=== PATIENT | male | born 1960 | race Caucasian/White ===

== ENCOUNTER 2016-08-30 10:46 | Outpatient (CLI) | payer MEDICAID | END 2016-08-30 10:47 | disposition home or self-care (01) | DX: Z13.9 Encounter for screening, unspecified (principal) ==

== ENCOUNTER 2016-11-14 21:52 | Emergency (ER) | payer MEDICAID ==
--- NOTE | 2016-11-14 22:13 | ED Physician Documentation ---
History of Present Illness - Stated complaint Stated Complaint: GALINDO, BODY ACHES, FEVER - Chief complaint Chief Complaint: Fever - History obtained from History obtained from: Patient - History of Present Illness Timing: Other (Healthy 56-year-old gentleman has been sick for 2 days with body aches, vomiting, diarrhea which is better, chills, and headache. recently sick with similar syndrome. No recent travel. No neck stiffness.) Review of Systems Constitutional: reports: Chills, Myalgias, Fatigue. denies: Fever Ears: denies: Ear pain Nose: denies: Rhinorrhea / runny nose, Congestion Throat: denies: Sore throat Respiratory: denies: Cough GI: reports: Nausea, Vomiting, Diarrhea. denies: Abdominal Pain Skin: denies: Rash, Lesions Musculoskeletal: reports: Neck pain, Back pain Endocrine: denies: Weight loss, Weight gain PD PAST MEDICAL HISTORY - Past Medical History Cardiovascular: None Respiratory: None Neuro: None Endocrine/Autoimmune: None GI: None : None HEENT: None Psych: None Musculoskeletal: Chronic back pain Derm: None - Past Surgical History Past Surgical History: Yes General: Other HEENT: Tonsil/Adenoidectomy - Present Medications Home Medications: Ambulatory Orders Medication Instructions Recorded Confirmed Ibuprofen [Motrin] 800 mg PO Q8H PRN #30 tablet 11/14/16 Ondansetron HCl [Zofran] 4 mg PO Q6H PRN #10 tablet 11/14/16 - Allergies Allergies/Adverse Reactions: Allergies Allergy/AdvReac Type Severity Reaction Status Date / Time acetaminophen [From Vicodin] AdvReac Severe Nausea Verified 11/14/16 21:58 hydrocodone bitartrate * AdvReac Severe Nausea Verified 11/14/16 21:58 [From Vicodin] - Social History Does the pt smoke?: No Smoking Status: Never smoker Does the pt drink ETOH?: No Does the pt have substance abuse?: No - Immunizations Immunizations are current?: Yes - POLST Patient has POLST: No PD ED PE NORMAL - Vitals Vital signs reviewed: Yes - General General: Alert and oriented X 3, No acute distress - HEENT HEENT: PERRL, EOMI, Ears normal, Pharynx benign - Neck Neck: Supple, no meningeal sign, No bony TTP - Cardiac Cardiac: RRR, No murmur - Respiratory Respiratory: No respiratory distress, Clear bilaterally - Abdomen Abdomen: Soft, Non tender - Back Back: No CVA TTP, No spinal TTP - Derm Derm: No rash - Neuro Neuro: Alert and oriented X 3, Normal speech - Psych Psych: Normal mood, Normal affect Results - Vitals Vitals: Vital Signs - 24 hr 11/14/16 11/14/16 21:55 23:40 Temperature 36.3 C L Heart Rate 117 H 80 Respiratory 18 17 Rate Blood Pressure 120/81 H 124/70 O2 Saturation 99 99 Oxygen O2 Source Room air - Labs Labs: Laboratory Tests 11/14/16 22:40 Sodium 133 L Potassium 4.0 Chloride 103 Carbon Dioxide 23 Anion Gap 7.0 BUN 18 Creatinine 1.2 Estimated GFR (MDRD) 63 L Glucose 115 H Calcium 8.3 L Total Bilirubin 0.6 AST 26 ALT 19 Alkaline Phosphatase 54 Total Protein 7.3 Albumin 4.2 Globulin 3.1 Albumin/Globulin Ratio 1.4 Lipase 17 L PD MEDICAL DECISION MAKING - ED course ED course: 56-year-old gentleman with an illness that sounds quite flulike with headache, myalgias, vomiting and diarrhea, chills. He has no fever here and an unremarkable examination. He was administered IV fluids, Toradol, Zofran with excellent relief of his symptoms. Departure - Departure Disposition: 01 Home, Self Care Clinical Impression: Viral syndrome Condition: Good Record reviewed to determine appropriate education?: Yes Instructions: ED Viral Syndrome Prescriptions: Ibuprofen [Motrin] 800 mg PO Q8H PRN #30 tablet PRN Reason: PAIN &/OR FEVER Ondansetron HCl [Zofran] 4 mg PO Q6H PRN #10 tablet PRN Reason: Nausea / Vomiting Comments: It seems that you have a flulike illness. You should be better in the next couple of days. Return if worse or if new symptoms develop or if your nausea does not respond to the medication. Your blood pressure was elevated today on check in to the emergency department. This does not mean that you have hypertension, it is a common phenomenon to check into the emergency department and have elevated blood pressure. I recommend that you see your primary care physician within the week to have it rechecked when you're feeling better. Discharge Date/Time: 11/14/16 23:40
[2016-11-14] MEDS ORDERED: KETOROLAC 30 MG/ML VIAL ONE (22:28)
[2016-11-14] MEDS ORDERED: ONDANSETRON 4 MG/2 ML VIAL ONE (22:28)
[2016-11-14] MEDS: KETOROLAC 60 MG/2 ML VIAL IVP STA (22:32)
[2016-11-14] MEDS: SODIUM CHLORIDE 0.9% 1,000 ML IV ONE (22:32)
[2016-11-14] MEDS: ONDANSETRON 4 MG/2 ML VIAL IVP STA (22:32)
[2016-11-14 22:48] LABS: ALBUMIN/GLOBULIN RATIO 1.4 (1.0-2.2); BILIRUBIN,TOTAL 0.6 mg/dL (0.2-1.0); CALCIUM 8.3 mg/dL (8.5-10.3); CREATININE 1.2 mg/dL (0.6-1.2); TOTAL PROTEIN 7.3 g/dL (6.7-8.2)
[2016-11-14] MEDS ORDERED: ONDANSETRON ODT 4 MG Prepack 2 TL ONE (22:57)
[2016-11-14] MEDS: ONDANSETRON ODT 4 MG Prepack 2 TL STA (23:03)
[2016-11-14 23:49] VITALS: BP 124/70
== END 2016-11-14 23:40 | disposition home or self-care (01) ==
LOC: ED 21:52
DX: B34.9 Viral infection, unspecified (principal)
CPT/HCPCS: 80053; 83690; 96361; 96374; 96375; 99283; 99284

== ENCOUNTER 2019-09-15 04:24 | Emergency (ER) | payer SELFPAY ==
--- NOTE | 2019-09-15 04:36 | ED Physician Documentation ---
History of Present Illness - Stated complaint Stated Complaint: BACK PX/RASH - Chief complaint Chief Complaint: Back Pain - History obtained from History obtained from: Patient (Patient is a 59-year-old male who presents with a chief complaint of shingles.The patient reports that he has a rash that starts on his right inguinal region and radiates around posteriorly to the midline. He denies any history of previous similar episodes he reports he is not received the shingles vaccine and that he does not get a physician.He denies any other complaints currently. He reports she is able to ambulate and urinate and move his bowels without any complications.) Review of Systems Constitutional: reports: Reviewed and negative Eyes: reports: Reviewed and negative Ears: reports: Reviewed and negative Nose: reports: Reviewed and negative Throat: reports: Reviewed and negative Cardiac: reports: Reviewed and negative Respiratory: reports: Reviewed and negative GI: reports: Reviewed and negative : reports: Reviewed and negative Skin: reports: Rash, Lesions, Reviewed and negative Musculoskeletal: reports: Reviewed and negative Neurologic: reports: Reviewed and negative Psychiatric: reports: Reviewed and negative Endocrine: reports: Reviewed and negative Immunocompromised: reports: Reviewed and negative PD PAST MEDICAL HISTORY - Past Medical History Cardiovascular: None Respiratory: None Endocrine/Autoimmune: None GI: None : None HEENT: None Psych: None Musculoskeletal: Chronic back pain Derm: None - Past Surgical History Past Surgical History: Yes General: Other HEENT: Tonsil/Adenoidectomy - Present Medications Home Medications: Ambulatory Orders Medication Instructions Recorded Confirmed Ibuprofen [Motrin] 800 mg PO Q8H PRN #30 tablet 11/14/16 Ondansetron HCl [Zofran] 4 mg PO Q6H PRN #10 tablet 11/14/16 Hydrocodone/Acetaminophen [Rew 1 each PO Q6HR PRN #14 tablet 09/15/19 5-325 Tablet] Ondansetron Odt [Zofran] 4 mg TL Q6H PRN #10 tablet 09/15/19 Valacyclovir HCl [Valacyclovir] 1,000 mg PO TID 7 Days #20 tablet 09/15/19 - Allergies Allergies/Adverse Reactions: Allergies Allergy/AdvReac Type Severity Reaction Status Date / Time acetaminophen [From Vicodin] AdvReac Severe Nausea Verified 11/14/16 21:58 hydrocodone bitartrate * AdvReac Severe Nausea Verified 11/14/16 21:58 [From Vicodin] - Social History Does the pt smoke?: No Smoking Status: Never smoker Does the pt drink ETOH?: No Does the pt have substance abuse?: No - Immunizations Immunizations are current?: Yes - POLST Patient has POLST: No PD ED PE NORMAL - Vitals Vital signs reviewed: Yes - General General: Alert and oriented X 3, No acute distress - HEENT HEENT: PERRL - Neck Neck: Supple, no meningeal sign - Cardiac Cardiac: RRR, No murmur - Respiratory Respiratory: Clear bilaterally - Abdomen Abdomen: Normal bowel sounds, Soft, Non tender, Non distended - Derm Derm: Other (There is a diffuse vesicular rash from the midline posteriorly over the lumbosacral region that spreads laterally than anteriorly to the right inguinal region there are lesions at different stages of healing.There is no crepitus on exam.There is no fluctuance and no induration.) - Extremities Extremities: No deformity - Neuro Neuro: Alert and oriented X 3 - Psych Psych: Normal mood, Normal affect Results - Vitals Vitals: Vital Signs - 24 hr 09/15/19 04:30 Temperature 35.5 C L Heart Rate 102 H Respiratory 30 H Rate Blood Pressure 140/106 H O2 Saturation 99 Oxygen O2 Source Room air Departure - Departure Disposition: 01 Home, Self Care Clinical Impression: Shingles Qualifiers: Herpes zoster complications: without complications Qualified Code(s): B02.9 - Zoster without complications Condition: Fair Instructions: ED Shingles Follow-Up: Brigid Arreaga ARNP [Primary Care Provider] - Tomorrow Prescriptions: Hydrocodone/Acetaminophen [Rew 5-325 Tablet] 1 each PO Q6HR PRN #14 tablet PRN Reason: Pain Ondansetron Odt [Zofran] 4 mg TL Q6H PRN #10 tablet PRN Reason: Nausea / Vomiting Valacyclovir HCl [Valacyclovir] 1,000 mg PO TID 7 Days #20 tablet
[2019-09-15 04:45] VITALS: BP 140/106
[2019-09-15] MEDS ORDERED: HYDROmorphone 2 MG/ML VIAL IM STA (04:55)
[2019-09-15] MEDS ORDERED: valACYclovir 500 MG TABLET PO ONE (05:00)
== END 2019-09-15 05:16 | disposition home or self-care (01) ==
LOC: ED 04:24
DX: B02.9 Zoster without complications (principal)
CPT/HCPCS: 96372; 99283; A9270; J1170

== ENCOUNTER 2019-09-20 00:55 | Emergency (ER) | payer SELFPAY ==
--- NOTE | 2019-09-20 02:06 | ED Physician Documentation ---
History of Present Illness - Stated complaint Stated Complaint: PAIN - Chief complaint Chief Complaint: Wound - History obtained from History obtained from: Patient - History of Present Illness Timing: How many weeks ago (1) Pain level now: 10 Improved by: Modest improvement with Vicodin but decreasing effectiveness Worsened by: No exacerbating factors - Additonal information Additional information: c/o right back, flank, and groin pain due to shingles. symptoms began 1 week ago, and he was T+R from this ED 5 days ago, prescribed valtrex and vicodin. returns due to increasing pain that is no longer adequately controlled with the vicodin. Review of Systems Constitutional: denies: Fever Skin: reports: Rash (painful rash right low back around right flank to right groin) Musculoskeletal: reports: Back pain PD PAST MEDICAL HISTORY - Past Medical History Cardiovascular: None Respiratory: None Endocrine/Autoimmune: None GI: None : None HEENT: None Psych: None Musculoskeletal: Chronic back pain Derm: None - Past Surgical History Past Surgical History: Yes General: Other HEENT: Tonsil/Adenoidectomy - Present Medications Home Medications: Ambulatory Orders Medication Instructions Recorded Confirmed Ibuprofen [Motrin] 800 mg PO Q8H PRN #30 tablet 11/14/16 Ondansetron HCl [Zofran] 4 mg PO Q6H PRN #10 tablet 11/14/16 Hydrocodone/Acetaminophen [[place] 1 each PO Q6HR PRN #14 tablet 09/15/19 5-325 Tablet] Ondansetron Odt [Zofran] 4 mg TL Q6H PRN #10 tablet 09/15/19 Valacyclovir HCl [Valacyclovir] 1,000 mg PO TID 7 Days #20 tablet 09/15/19 Gabapentin 300 mg PO BID #30 capsule 09/20/19 Oxycodone HCl/Acetaminophen 1 - 2 each PO Q6H PRN #14 tablet 09/20/19 [Percocet 5-325 mg Tablet] - Allergies Allergies/Adverse Reactions: Allergies Allergy/AdvReac Type Severity Reaction Status Date / Time acetaminophen [From Vicodin] AdvReac Severe Nausea Verified 11/14/16 21:58 hydrocodone bitartrate * AdvReac Severe Nausea Verified 11/14/16 21:58 [From Vicodin] - Social History Does the pt smoke?: No Smoking Status: Never smoker Does the pt drink ETOH?: No Does the pt have substance abuse?: No - Immunizations Immunizations are current?: Yes - POLST Patient has POLST: No PD ED PE NORMAL - Vitals Vital signs reviewed: Yes - General General: Alert and oriented X 3, Well developed/nourished, Other (appears to be in significant painful distress) - Abdomen Abdomen: Soft, Non tender - Back Back: No CVA TTP PD ED PE EXPANDED - Derm Derm: Rash (Maculopapular rash with some vesicles, located on right low back, radiates around right flank to right groin and proximal right thigh. Most lesions on back and flank are dry and scaling. Rash does not cross midline; no confluence, not hot to touch, no fluctuance or discharge to suggest secondary (bacterial) infectious process) Results - Vitals Vitals: Vital Signs - 24 hr 09/20/19 09/20/19 01:05 03:18 Temperature 36.8 C Heart Rate 83 78 Respiratory 24 15 Rate Blood Pressure 150/101 H 148/99 H O2 Saturation 95 98 Oxygen O2 Source Room air PD MEDICAL DECISION MAKING - ED course Complexity details: reviewed old records, considered differential, d/w patient, d/w family ED course: given dilaudid IM in ED, take-home percocet (to be to be taken instead of vicodin) with rx for percocet and gabapentin Departure - Departure Disposition: 01 Home, Self Care Clinical Impression: Shingles Condition: Good Instructions: ED Shingles Prescriptions: Gabapentin 300 mg PO BID #30 capsule Oxycodone HCl/Acetaminophen [Percocet 5-325 mg Tablet] 1 - 2 each PO Q6H PRN #14 tablet PRN Reason: pain Discharge Date/Time: 09/20/19 03:44
[2019-09-20] MEDS ORDERED: HYDROmorphone 1 MG/ML CARPUJECT IM STA (02:23)
[2019-09-20] MEDS ORDERED: GABAPENTIN 100 MG CAPSULE PO STA (02:23)
[2019-09-20 03:18] VITALS: BP 148/99
[2019-09-20] MEDS ORDERED: oxyCODONE/ACET 5/325 Prepack 4 PO STA (03:29)
== END 2019-09-20 03:44 | disposition home or self-care (01) ==
LOC: ED 00:55
DX: B02.9 Zoster without complications (principal)
CPT/HCPCS: 96374; 99283; A9270; J1170

== ENCOUNTER 2021-02-04 21:04 | Emergency (ER) | payer SELFPAY ==
--- NOTE | 2021-02-04 21:57 | XRAY Report ---
PROCEDURE: Ribs w/PA Chest LT INDICATIONS: blunt injury/pain TECHNIQUE: 4 views of the left ribs were acquired, along with a single view chest. COMPARISON: Chest x-ray dated 09/12/2015 FINDINGS: Surgical changes and devices: None. Bones and chest wall: No fractures or dislocations. No suspicious bony lesions. Overlying soft tis sues appear unremarkable. Lungs and pleura: No pleural effusions or pneumothorax. Lungs appear clear. Mediastinum: Mediastinal contours appear normal. Heart size is normal. IMPRESSION: No acute fracture. No osseous lesion. If symptoms and/or clinical suspicion for pathology continue, f urther assessment with repeat plain films, or advanced imaging (e.g., CT or bone scan) is recommended for further assessment. Reviewed by: Davis Rushing MD on 02/04/2021 9:55 PM PDT Approved by: Davis Rushing MD on 02/04/2021 9:55 PM PDT Station ID: [id number]
[2021-02-04] MEDS ORDERED: HYDROmorphone 1 MG/ML CARPUJECT IM STA (22:29)
[2021-02-04] MEDS ORDERED: KETOROLAC 60 MG/2 ML VIAL IM STA (22:29)
--- NOTE | 2021-02-04 22:32 | ED Physician Documentation ---
History of Present Illness - Stated complaint Stated Complaint: CHEST INJURY - Chief complaint Chief Complaint: Trauma Ch/Bk - Additonal information Additional information: 60-year-old male presents to the emergency department for evaluation of left upper chest wall pain. He was working on his vehicle at home and the braydon handle decompressed quickly and smacked him in the chest. He did not strike his head he did not lose consciousness. But he has had pain in the left upper chest since. He is not taking anything for the pain but states it was getting harder to breathe today. Review of Systems Constitutional: denies: Fever, Chills Eyes: reports: Reviewed and negative Ears: reports: Reviewed and negative Nose: reports: Reviewed and negative Throat: reports: Reviewed and negative Cardiac: reports: Other (Chest wall pain) Respiratory: denies: Dyspnea, Cough GI: reports: Reviewed and negative : reports: Reviewed and negative PD PAST MEDICAL HISTORY - Past Medical History Cardiovascular: None Respiratory: None Neuro: Other Endocrine/Autoimmune: None GI: None : None HEENT: None Psych: None Musculoskeletal: Chronic back pain Derm: None - Past Surgical History Past Surgical History: Yes General: Other HEENT: Tonsil/Adenoidectomy - Present Medications Home Medications: Ambulatory Orders Medication Instructions Recorded Confirmed Ibuprofen [Motrin] 600 mg PO Q6H PRN #30 tab 02/04/21 oxyCODONE [Roxicodone] 5 mg PO BID PRN #10 tablet 02/04/21 - Allergies Allergies/Adverse Reactions: Allergies Allergy/AdvReac Type Severity Reaction Status Date / Time acetaminophen [From Vicodin] AdvReac Severe Nausea Verified 02/04/21 21:20 hydrocodone bitartrate * AdvReac Severe Nausea Verified 02/04/21 21:20 [From Vicodin] - Social History Does the pt smoke?: No Smoking Status: Never smoker Does the pt drink ETOH?: No Does the pt have substance abuse?: No - Immunizations Immunizations are current?: Yes - POLST Patient has POLST: No PD ED PE EXPANDED - General General: Alert, In Pain - Neck Neck: Supple w/out meningeal sx, No tenderness. No: Soft tissue TTP, Bony TTP, Limited ROM - Cardiac Cardiac: Regular Rate, Radial strong equal, Pedal strong equal, Cap refill < 2 sec, Chest wall TTP (Mild ecchymosis just below the clavicle left upper chest. Reproducible tenderness without crepitus left upper chest. Patient able to take a full deep breath however.) - Respiratory Respiratory: Clear to ausultation anjel. No: Distress, Labored, Accessory mm use - Abdomen Abdomen: Normal Bowel sounds. No: Tender to palpation - Derm Derm: Normal color, Warm and dry, Bruising (Left upper chest.) Results - Vitals Vitals: Vital Signs - 24 hr 02/04/21 21:17 Temperature 36.8 C Heart Rate 81 Respiratory 18 Rate Blood Pressure 148/85 H O2 Saturation 98 Oxygen O2 Source Room air - EKG (time done) 2123 Rate: Rate (enter#) (81) Rhythm: NSR [place]: Normal Intervals: Normal [place] QRS: Normal Ischemia: Normal ST segments Compare to prior EKG: Unchanged from prior EKG Computer interpretation: Agree with computer - Rads (name of study) CXR with left ribs Radiology: Final report received (No acute fracture or osseous lesions. No pneumothorax.) PD MEDICAL DECISION MAKING - ED course Complexity details: reviewed results, re-evaluated patient, d/w patient, d/w family ED course: 60-year-old male presents the emergency department for evaluation of acute left upper anterior chest wall pain sustained 2 days ago when a braydon handle suddenly decompressed and struck him in the chest. He does have a small area of ecchymosis just below the clavicle on the left upper chest. X-ray does not show any obvious rib fractures no pneumothorax. Patient was given an injection of Dilaudid and Toradol here in the ER with moderate relief of pain. Will recommend ibuprofen and as needed Percocet. Patient was also given an incentive spirometer and encouraged to use 5 times a day to help prevent atelectasis. Emergent return precautions were discussed for fevers, shortness of air, hemoptysis or worsening symptoms. I am prescribing a short course of short-acting opioid pain medication for this patient. I have reviewed the patients [employer] and no concerning findings were noted. I have discussed that the opioids are for short term therapy only, and will not be refilled from the ED. Departure - Departure Disposition: 01 Home, Self Care Clinical Impression: Contusion of chest wall with intact skin Condition: Stable Record reviewed to determine appropriate education?: Yes Instructions: ED Contusion Chest Wall Ch Prescriptions: Ibuprofen [Motrin] 600 mg PO Q6H PRN #30 tab PRN Reason: Pain oxyCODONE [Roxicodone] 5 mg PO BID PRN #10 tablet PRN Reason: Pain Comments: [place] the x-ray of your chest does not show any broken bones or a collapsed lung. You do have a contusion or bruising on the chest wall. This can be very painful and uncomfortable. I would like you to use the incentive spirometer 5 times a day to help make sure you are taking big deep breaths and preventing pneumonia from developing. Please fill the prescription for the ibuprofen and take with food 3 times a day. For severe pain you may fill the prescription for the oxycodone and take twice daily. Return to the emergency department if you develop fevers, have worsening chest pain or shortness of air, have a bloody cough or feel that your symptoms are not improving. I am prescribing a short course of narcotic pain medication for you. These are potentially dangerous and addictive medications that should be used carefully. These medications may constipate you. Take an [id number] stool softener (docusate) twice daily with plenty of water while taking these medications. If you go 24 hours without a bowel movement, take [id number] miralax, per package instructions. Do not drink or drive while taking these medications. If you received narcotic or sedating medications while in the emergency department, do not drive for 24 hours. Store this medication in a safe, secure place and out of reach of children. It is a violation of federal law to give or sell this medication to another person or to use in a manner other than prescribed. The ED will not refill narcotic prescriptions, including prescriptions lost or stolen. To dispose of unwanted medications: 1. [facility] at [address] in [place] has a medication drop box. They accept prescription medications (in pill form) Monday through Monday 9:00 a.m. to 5:00 p.m. 2. The [facility] [employer] accepts prescription medications (in pill form only) for disposal year round. Call for more information. 3. Contact the [facility] for the next [facility] sponsored prescription drug collection event. , [phone], or [phone]; Note that many narcotic pain relievers also contain Tylenol/acetaminophen. Please ensure that your total dose of acetaminophen from all sources does not exceed 3 g (3000 mg) per day.
[2021-02-04 23:02] VITALS: BP 150/98
== END 2021-02-04 23:01 | disposition home or self-care (01) ==
LOC: ED 21:04
DX: S20.212A Contusion of left front wall of thorax, initial encounter (principal); W20.8XXA Other cause of strike by thrown, projected or falling object, initial encounter; Y93.89 Activity, other specified; Y92.008 Other place in unspecified non-institutional (private) residence as the place of occurrence of the external cause
CPT/HCPCS: 71101; 93005; 96372; 99283; 99284; J1170

== ENCOUNTER 2021-08-31 21:45 | Outpatient (CLI) | payer SELFPAY | END 2021-08-31 21:46 | disposition critical access hospital (66) | LOC: EMS 21:45 | DX: R07.89 Other chest pain (principal); M54.50 Low back pain, unspecified | CPT/HCPCS: A0425; A0429 ==

== ENCOUNTER 2021-08-31 21:57 | Emergency (ER) | payer SELFPAY ==
--- NOTE | 2021-08-31 22:13 | ED Physician Documentation ---
PD HPI CHEST PAIN - Stated complaint Stated Complaint: CHEST/BACK PX - Chief complaint Chief Complaint: Cardiac - History obtained from History obtained from: Patient (3) - History of Present Illness Timing - onset: How many hours ago Timing - details: Abrupt onset, Constant Pain level now: 6 Quality: Pain Location: Substernal Radiation: Other (does not radiate) Improved by: Rest (back), Nothing (chest) Worsened by: Movement (back), Other (chest pain has no exacerbating factors) Recently seen: Not recently seen - Additional information Additional information: brought from senior care, c/o midline chest pain that began approximately 3 hours [employer] while in his senior care cell at rest. Denies h/o similar chest pain, denies h/o cardiac problems. He also notes left low back pain x 2 days, worse with movement. Review of Systems Constitutional: reports: Reviewed and negative Cardiac: reports: Chest pain / pressure. denies: Palpitations, Pedal edema, Calf pain Respiratory: reports: Reviewed and negative GI: reports: Reviewed and negative : denies: Dysuria, Frequency Musculoskeletal: reports: Back pain PD PAST MEDICAL HISTORY - Past Medical History Cardiovascular: None Respiratory: None Neuro: Other Endocrine/Autoimmune: None GI: None : None HEENT: None Psych: None Musculoskeletal: Chronic back pain Derm: None - Past Surgical History Past Surgical History: Yes General: Other HEENT: Tonsil/Adenoidectomy - Present Medications Home Medications: Ambulatory Orders Medication Instructions Recorded Confirmed Ibuprofen [Motrin] 600 mg PO Q6H PRN #30 tab 02/04/21 oxyCODONE [Roxicodone] 5 mg PO BID PRN #10 tablet 02/04/21 - Allergies Allergies/Adverse Reactions: Allergies Allergy/AdvReac Type Severity Reaction Status Date / Time acetaminophen [From Vicodin] AdvReac Severe Nausea Verified 08/31/21 22:01 hydrocodone bitartrate * AdvReac Severe Nausea Verified 08/31/21 22:01 [From Vicodin] - Social History Does the pt smoke?: No Smoking Status: Never smoker Does the pt drink ETOH?: No Does the pt have substance abuse?: No - Immunizations Immunizations are current?: Yes - POLST Patient has POLST: No PD ED PE NORMAL - Vitals Vital signs reviewed: Yes - General General: Alert and oriented X 3, No acute distress, Well developed/nourished - Cardiac Cardiac: RRR, No murmur, No gallop, No rub - Respiratory Respiratory: No respiratory distress, Clear bilaterally - Abdomen Abdomen: Soft, Non tender - Back Back: No CVA TTP, No spinal TTP - Derm Derm: Normal color, Warm and dry, No rash Results - Vitals Vitals: Vital Signs - 24 hr 08/31/21 23:41 Temperature 36.5 C Heart Rate 60 Respiratory 16 Rate Blood Pressure 115/78 O2 Saturation 97 Oxygen O2 Source Room air - EKG (time done) No standard instances Rate: Rate (enter#) (61) Rhythm: NSR [place]: Normal Intervals: Normal [place] QRS: Normal Ischemia: Normal ST segments - Labs Labs: Laboratory Tests 08/31/21 08/31/21 08/31/21 22:36 22:36 22:36 WBC 4.6 L RBC 4.54 L Hgb 14.1 Hct 40.9 L MCV 90.1 MCH 31.1 H MCHC 34.5 RDW 12.0 Plt Count 176 MPV 9.5 Neut # (Auto) 2.4 Lymph # (Auto) 1.4 L Knott # (Auto) 0.5 Eos # (Auto) 0.3 Baso # (Auto) 0.0 Absolute Nucleated RBC 0.00 Nucleated RBC % 0.0 Sodium 139 Potassium 4.0 Chloride 106 Carbon Dioxide 25 Anion Gap 8.0 BUN 17 Creatinine 0.9 Estimated GFR (MDRD) 86 L Glucose 104 H Calcium 8.5 Troponin I High Sens < 2.3 L - Rads (name of study) chest xray Radiology: Prelim report reviewed, See rad report PD MEDICAL DECISION MAKING - ED course Complexity details: reviewed old records, reviewed results, re-evaluated patient, considered differential, d/w patient ED course: c/o 3 hours of chest pain , has no concerning findings on CXR, EKG, blood tests (including high sensitivity troponin). He also c/o 2 days of atraumatic left low back pain that is worse with movement, no red flags regarding his back pain on H+P (no fever, weakness, numbness, and normal exam). Given IV toradol for LBP, results reviewed with patient Departure - Departure Disposition: Home, Self Care Clinical Impression: Chest pain, Back pain Condition: Good Instructions: ED Chest Pain Atypical Unkn Cause, ED Neck Back Pain General Discharge Date/Time: 08/31/21 23:43
[2021-08-31 22:42] LABS: BASOPHILS % (AUTO) 0.9 %; EOSINOPHILS # (AUTO) 0.3 10^3/uL (0.0-0.7); EOSINOPHILS % (AUTO) 6.5 %; HCT - HEMATOCRIT 40.9 % (42.0-52.0); HGB - HEMOGLOBIN 14.1 g/dL (14.0-18.0); LYMPHOCYTES # (AUTO) 1.4 10^3/uL (1.5-3.5); LYMPHOCYTES % (AUTO) 31.4 %; MEAN CORPUSCULAR HEMOGLOBIN 31.1 pg (27.0-31.0); MEAN CORPUSCULAR HGB CONC 34.5 g/dL (32.0-36.0); MEAN CORPUSCULAR VOLUME 90.1 fL (80.0-94.0); MEAN PLATELET VOLUME 9.5 fL (7.4-11.4); MONOCYTES # (AUTO) 0.5 10^3/uL (0.0-1.0); MONOCYTES % (AUTO) 9.8 %; NEUTROPHILS # (AUTO) 2.4 10^3/uL (1.5-6.6); NEUTROPHILS % (AUTO) 51.2 %; PLT - PLATELET COUNT 176 10^3/uL (130-450); RED BLOOD COUNT 4.54 10^6/uL (4.70-6.10); WHITE BLOOD COUNT 4.6 x10^3/uL (4.8-10.8)
--- NOTE | 2021-08-31 22:48 | XRAY Report ---
PROCEDURE: Chest 1 View X-Ray INDICATIONS: chest pain TECHNIQUE: One view of the chest was acquired. COMPARISON: 09/12/2015 and 02/04/2021. FINDINGS: Surgical changes and devices: None. Lungs and pleura: No pleural effusions or pneumothorax. Lungs are clear. Mediastinum: Mediastinal contours appear normal. Heart size is normal. Bones and chest wall: No suspicious bony lesions. Overlying soft tissues appear unremarkable. IMPRESSION: No acute cardiopulmonary pathology. Reviewed by: Fermin Camp MD on 08/31/2021 10:46 PM PST Approved by: Fermin Camp MD on 08/31/2021 10:46 PM PST Station ID: [id number]
[2021-08-31 22:52] LABS: CALCIUM 8.5 mg/dL (8.5-10.3); CREATININE 0.9 mg/dL (0.6-1.2)
[2021-08-31] MEDS ORDERED: KETOROLAC 30 MG/ML VIAL IVP STA (23:14)
[2021-08-31 23:44] VITALS: BP 115/78
== END 2021-08-31 23:43 | disposition home or self-care (01) ==
LOC: EDUNIT# → ED 21:57
DX: R07.89 Other chest pain (principal); M54.50 Low back pain, unspecified
CPT/HCPCS: 36415; 80048; 84484; 85025; 93005; 96374; 99284

== ENCOUNTER 2022-12-15 15:34 | Emergency (ER) | payer MEDICAID ==
[2022-12-15 15:41] VITALS: BP 167/107
[2022-12-15] MEDS ORDERED: lidocaine 1% 20 ML MDV SUBQ ONE (15:47)
[2022-12-15] MEDS ORDERED: BUPIVACAINE 0.5% PF 10 ML VIAL SUBQ STA (15:47)
[2022-12-15] MEDS ORDERED: TETANUS/DIPHTHERIA/PERTUSSIS 0.5 ML SYRINGE IM ONE (15:50)
[2022-12-15] MEDS ORDERED: ONDANSETRON ODT 4 MG TABLET TL STA (15:57)
[2022-12-15] MEDS ORDERED: HYDROmorphone 0.5 MG/0.5 ML SYRINGE IM STA (15:57)
--- NOTE | 2022-12-15 16:36 | XRAY Report ---
PROCEDURE: Hand 3 View LT INDICATIONS: saw injury 3rd MCP TECHNIQUE: 3 views of the hand(s) acquired. COMPARISON: None. FINDINGS: Bones: No fractures or dislocations. No suspicious bony lesions. Soft tissues: Laceration along the dorsum of the third phalanx base. Multifocal, punctate foreign layne dy within the laceration. IMPRESSION: Laceration along the dorsum of the third phalanx base. Multifocal, punctate foreign body within the l aceration. Reviewed by: Mane Tracy on 12/15/2022 4:35 PM PDT Approved by: Mane Tracy on 12/15/2022 4:35 PM PDT Station ID: [id number]
[2022-12-15] MEDS ORDERED: BACITRACIN ZINC OINT 1 PACKET TOP STA (16:40)
[2022-12-15] MEDS ORDERED: SULFAMETH/TRIMETH DS 800/160 MG TABLET PO STA (16:41)
--- NOTE | 2022-12-15 16:41 | ED Physician Documentation ---
PD HPI SKIN - Stated complaint Stated Complaint: RIGHT FINGERS CUT - Chief complaint Chief Complaint: Laceration - History obtained from History obtained from: Patient - Additional information Additional information: The patient comes to the emergency department with chief complaint of lacerations over his left dorsal MCP and over the dorsum of the left hand overlying the distal second MCP after an injury with a circular saw. He states he was cutting metal at the time. The patient mainly came in because he could not get the bleeding to stop at home. He does not remember when his last tetanus shot was. He states he looked at the wounds and began to feel lightheaded, nauseated, and sweaty. No other complaints at this time. No other injuries. The lacerations occurred just prior to coming into the emergency department. PD PAST MEDICAL HISTORY - Past Medical History Cardiovascular: None Respiratory: None Neuro: Other Endocrine/Autoimmune: None GI: None : None HEENT: None Psych: None Musculoskeletal: Chronic back pain Derm: None - Past Surgical History Past Surgical History: Yes General: Other HEENT: Tonsil/Adenoidectomy - Present Medications Home Medications: Ambulatory Orders Medication Instructions Recorded Confirmed Ibuprofen [Motrin] 600 mg PO Q6H PRN #30 tab 02/04/21 oxyCODONE [Roxicodone] 5 mg PO BID PRN #10 tablet 02/04/21 Ondansetron Odt [Zofran] 4 mg TL Q6H PRN #10 tablet 12/15/22 Oxycodone HCl/Acetaminophen 1 - 2 each PO Q6H PRN #14 tablet 12/15/22 [Percocet 5-325 mg Tablet] Sulfamethox/Trimeth 800/160 1 each PO BID #14 tablet 12/15/22 [Bactrim Ds 800/160] - Allergies Allergies/Adverse Reactions: Allergies Allergy/AdvReac Type Severity Reaction Status Date / Time acetaminophen [From Vicodin] AdvReac Severe Nausea Verified 12/15/22 15:41 hydrocodone bitartrate * AdvReac Severe Nausea Verified 12/15/22 15:41 [From Vicodin] - Social History Does the pt smoke?: No Smoking Status: Never smoker Does the pt drink ETOH?: No Does the pt have substance abuse?: No - Immunizations Immunizations are current?: Yes - POLST Patient has POLST: No PD ED PE NORMAL - Vitals Vital signs reviewed: Yes - General General: Alert and oriented X 3, Well developed/nourished, Other (The patient is pale and diaphoretic, hyperventilating.) - HEENT HEENT: Atraumatic, PERRL, EOMI, Moist mucous membranes - Neck Neck: Supple, no meningeal sign - Cardiac Cardiac: Strong equal pulses - Respiratory Respiratory: Other (The patient appears anxious and is hyperventilating but respirations are not labored.) - Derm Derm: Other (Warm, moderate diaphoresis.) - Extremities Extremities: No deformity, No edema, Other (Full extension and flexion of all joints of second and third left hand digits against resistance. No deformity.) - Neuro Neuro: Alert and oriented X 3 - Psych Psych: Normal mood, Normal affect PD ED PE EXPANDED - Free text exam Free text exam: 3 lacerations noted on the patient's left hand dorsum, Overlying the finger just distally and just proximally to the third MCP joint. Tendon is visualized and uninjured. Several pieces of what appeared to be metallic particulate and foreign material noted in the wounds. No compromise of the joint capsule. No obvious bony injury. 2 cm flap shaped laceration overlying distal second Metacarpal bone, superficial. Total length of all lacerations is 7 cm. Results - Vitals Vitals: Vital Signs - 24 hr 12/15/22 15:38 Temperature 36.2 C L Heart Rate 97 Respiratory 18 Rate Blood Pressure 167/107 H O2 Saturation 98 Oxygen O2 Source Room air - Rads (name of study) Left hand x-ray series Relevant Findings:: Final report received, See rad report (Multifocal punctate foreign body within the laceration) Procedures - Laceration (location) R hand Length in cm: 7 Wound type: Irregular, Flap, Into subcut fat, Contaminated Neurovascular status: Sensory intact, Motor intact, Vascular intact Tendon involvement: Tendon intact Anesthesia: Lidocaine 1%, Marcaine 0.5% Wound preparation: Hibiclens, Irrigated copiously NS, Wound explored, To the base, FB identified, FB removed, Multiple flaps aligned, Extensive cleaning/removal of particulate matter Skin layer closure: Nylon, Interrupted, Size #-0 - enter number (4.0), Sutures - enter # (15) Other: Patient tolerated well, No complications, Neurovascular intact, Dressing applied, Tetanus booster given PD Medical Decision Making - ED course Complexity details: considered differential, d/w patient ED course: The patient's tetanus was updated and his wounds were repaired with a total of 15 sutures after copious irrigation and removal of the foreign material is much as possible. The patient initially appeared to be having a vagal response, but once his wound was numbed up and he was given 1.5 mg of Dilaudid, and the patient was found to be feeling much better. He spent the entire repair and animated conversation with the staff and was very well-appearing. We discussed wound care at home and the need for follow-up with a medical professional to have the sutures removed. We have discussed signs of infection that should prompt the patient to return to the emergency department. The patient's tetanus was updated today. Departure - Departure Disposition: Home, Self Care Clinical Impression: Laceration Condition: Stable Instructions: ED Laceration Hand Prescriptions: Sulfamethox/Trimeth 800/160 [Bactrim Ds 800/160] 1 each PO BID #14 tablet Oxycodone HCl/Acetaminophen [Percocet 5-325 mg Tablet] 1 - 2 each PO Q6H PRN #14 tablet PRN Reason: pain Ondansetron Odt [Zofran] 4 mg TL Q6H PRN #10 tablet PRN Reason: Nausea / Vomiting Comments: Your lacerations have been repaired with 15 synthetic sutures. These have enough tensile strength to keep your wound together as it heals, but do not absorb on their own. They will need to be removed in 7 to 10 days. Please follow-up either with your primary doctor, walk-in clinic, or the emergency department to have your wound rechecked and sutures removed. We have started you on a course of antibiotics to prevent infection since your laceration was contaminated and went very close to your joint. You have been given first dose here but please order picker the prescription and continue the antibiotics to prevent development of infection. The prescription for the antibiotics and a pain medication and nausea medicine have been electronically transmitted to [facility] pharmacy in [place]. You will have some swelling and soreness around the area of the injury but if you begin to notice redness and swelling spreading progressively away from the wounds, or if you begin to notice pus draining from the wounds, you should return immediately and have the wounds checked. You should also avoid rubbing, scrubbing, or immersing the wounds until the sutures are taken out, in order to prevent infection as well. Your tetanus has been updated today. This will be due again in 10 years.
== END 2022-12-15 17:02 | disposition home or self-care (01) ==
LOC: ED 15:34
DX: S61.422A Laceration with foreign body of left hand, initial encounter (principal); W27.0XXA Contact with workbench tool, initial encounter; Y93.89 Activity, other specified
CPT/HCPCS: 12042; 73130; 90471; 90715; 96372; 99283; A9270; J1170; Q0162